=== PATIENT | male | born 1945 | race Caucasian/White ===

== ENCOUNTER 2019-02-05 06:01 | Day surgery (SDC) | payer OTHER, MEDICARE ==
--- NOTE | 2019-01-10 08:52 | HP ---
DATE OF ADMISSION: 02/05/2019 DATE OF DICTATION: 12/31/2018 DATE OF SURGERY: 02/05/2019 REASON FOR ADMISSION: Right inguinal hernia BRIEF HISTORY: This is a 73-year-old gentleman who was noted to have a large soft tissue mass in the right groin region. Patient was evaluated by a previous surgery and underwent an ultrasound that confirmed a small hernia that is 4 x 2 cm in size. The ultrasound was performed in [facility]. He also had an ultrasound that confirmed the sonographic finding, and that was also performed in [facility]. In any event, the patient states he has some discomfort in the area with certain maneuvers such as standing with his right foot forward, Valsalva, and bending. He has had no change in bowel habits or appetite. PAST MEDICAL HISTORY: He denies cardiac disease, hypertension, or diabetes. PAST SURGICAL HISTORY: Trigger finger surgery in 2012. ALLERGIES: None. MEDICATION: Avastatin, lisinopril, aspirin, various vitamins, and lecithin. SOCIAL HISTORY: Patient does not smoke. He drinks socially. PHYSICAL EXAMINATION: Patient examined in erect and supine positions. He has an obvious right inguinal hernia of large size. The hernia is reducible in the supine position. Right scrotum and testicles are within normal limits. On the left is no obvious hernia noted on examination. Left scrotum and testicles within normal limits as well. Some laxity noted in the left groin. IMPRESSION/PLAN: Right inguinal hernia: This is a 73-year-old gentleman symptomatic from a right inguinal hernia. Based on his history, the hernia has also gotten larger, and therefore I would recommend proceeding with a repair at this time. Patient will be scheduled for a laparoscopic right inguinal hernia repair. At the time of laparoscopy, the left side should be examined, and if occult hernia is noted, it should be repaired at the same setting. If no occult hernia is seen, a piece of mesh will be left in direct inguinal space for reinforcement. Given the size of the hernia on the right, he is more likely to develop a postoperative seroma which may or may not resolved. This was conveyed to the patient. He understands and wants to proceed. The indications, alternatives, and complications discussed. Questions answered. Will plan on obtaining written consent the day of surgery. WARREN FLORENCE M.D. MARY [id number]
[2019-01-30 11:21] VITALS: BMI 21.9
[2019-02-05] MEDS ORDERED: TAMSULOSIN HCL 0.4 MG CAP ONE (06:26)
[2019-02-05] MEDS ORDERED: MIDAZOLAM HCL 2 MG/2 ML SINGLE DOSE VIAL ONE (07:25)
[2019-02-05] MEDS ORDERED: BUPIVACAINE HCL/PF (5 MG/ML) 30 ML VIAL IJ ONE (07:25)
[2019-02-05] MEDS ORDERED: PROPOFOL 20 ML ONE ×2 (08:03)
[2019-02-05] MEDS ORDERED: fentaNYL CITRATE 250 MCG/5 ML VIAL ONE (08:03)
[2019-02-05] MEDS ORDERED: ROCURONIUM BROMIDE 50 MG/5 ML VIAL ONE (08:03)
[2019-02-05] MEDS ORDERED: SUCCINYLCHOLINE CHLORIDE 200 MG/10 ML VIAL ONE (08:03)
[2019-02-05] MEDS ORDERED: ONDANSETRON 4 MG/2 ML VIAL ONE (08:17)
[2019-02-05] MEDS ORDERED: DEXAMETHASONE SOD PHOSPHATE 4 MG/1 ML VIAL ONE (08:17)
[2019-02-05] MEDS ORDERED: LIDOCAINE HCL/PF 2% SDV 5ML VIAL ONE (08:17)
[2019-02-05] MEDS ORDERED: ceFAZolin SODIUM 1 GM VIAL ONE (08:17)
[2019-02-05] MEDS ORDERED: KETOROLAC TROMETHAMINE 30 MG/1 ML VIAL ONE (08:17)
[2019-02-05] MEDS ORDERED: ePHEDrine SULFATE 50 MG/1 ML AMPULE ONE (08:19)
[2019-02-05] MEDS ORDERED: NEOSTIGMINE METHYLSULFATE 0.5 MG/ML - 10 ML MDV ONE (08:45)
[2019-02-05] MEDS ORDERED: GLYCOPYRROLATE 0.2 MG/1 ML VIAL ONE (08:45)
[2019-02-05] MEDS ORDERED: PROMETHAZINE HCL 25 MG/1 ML VIAL IVPUSH PRN (09:26)
[2019-02-05] MEDS ORDERED: oxyCODONE HCL 5 MG TABLET PO PRN ×2 (09:26)
[2019-02-05] MEDS ORDERED: ONDANSETRON 4 MG/2 ML VIAL IVPUSH PRN (09:26)
[2019-02-05 10:32] VITALS: TEMP 98.4
[2019-02-05] MEDS ORDERED: ACETAMINOPHEN 325 MG TABLET (FP) PO SCH (12:00)
[2019-02-05 17:04] VITALS: BP 145/84; PULSE 94
--- NOTE | 2019-02-11 21:39 | OP ---
DATE OF OPERATION: 02/05/2019. PREOPERATIVE DIAGNOSIS: Right inguinal hernia. POSTOPERATIVE DIAGNOSES: Right inguinal hernia, left inguinal hernia, hypertension, cardiac disease, and diabetes. PROCEDURE: Bilateral laparoscopic inguinal herniorrhaphy with mesh. SURGEON: Reyes Florence MD ENGINEERING JOB TITLES: Homar Villalba DO ANESTHESIA: Anselmo Sanders MD (general) ESTIMATED BLOOD LOSS: Minimal. SPECIMEN: None. PROCEDURE: This is a 74-year-old gentleman symptomatic from a progressive right inguinal hernia. He is here for operative repair. The patient identified appropriately and placed on the operating room table. He was placed under general anesthesia. The abdomen prepped and draped in the usual sterile fashion with ChloraPrep. An infraumbilical incision was made deep in his subcutaneous tissue. The fascia of the rectus muscle on the right was divided sharply. The muscle split under direct vision and a dissector balloon, followed by a structural balloon placed. Also under direct vision, a suprapubic 11-mm port placed. The following structures were right-side identified: Pubic tubercle, Harman ligament, inferior epigastric vessels, spermatic cord, and lateral abdominal wall. During the dissection, the patient has an indirect inguinal hernia reduced back into the preperitoneal space with a moderate-sized cord lipoma. A 5 x 6 piece of Versatex mesh was keyholed and placed through the suprapubic port site. The mesh wrapped around the cord structures laterally to reconstruct the internal ring. Laterally, the mesh anchored to the anterior abdominal wall and lateral abdominal all. Medially, the mesh anchored to the anterior abdominal wall, pubic tubercle, and Harman ligament. Upon completion of the right side, similar structures on the left side identified. On the left, he had a small indirect inguinal hernia sac reduced back into the preperitoneal space. Another 5 x 6 piece of Versatex mesh was keyholed, placed through the suprapubic port site. The mesh wrapped around the cord structures laterally to reconstruct the internal ring. Laterally, the mesh anchored to the anterior abdominal wall and lateral abdominal wall. Medially, the mesh overlapped in the midline and anchored to the anterior abdominal wall, pubic tubercle, Harman ligament. All the anterior abdominal wall anchors and lateral abdominal anchors placed under direct counterpalpation. The mesh used was Versatex and the anchoring system was AbsorbaTack. The preperitoneal space deflated under direct vision. The operative field is hemostatic. Port sites hemostatic. Both port site's fascia was reapproximated with interrupted 0 Vicryl suture. All skin closed with 4-0 Biosyn, followed by Dermabond. At the conclusion of this case, sponge count was correct. ATTESTATION: Brief operative note handwritten on the preprinted form. [facility] queried prior to giving narcotics. REYES FLORENCE M.D. MARY [id number] MTDD
== END 2019-02-05 17:40 | disposition home or self-care (01) ==
LOC: FASU 06:01
PROVIDERS: ATTEND Surgery
PROC: 0YUA4JZ Supplement Bilateral Inguinal Region with Synthetic Substitute, Percutaneous Endoscopic Approach (ICD-10-PCS; principal; 2019-02-05 08:31)
DX: K40.20 Bilateral inguinal hernia, without obstruction or gangrene, not specified as recurrent (principal)
CPT/HCPCS: 94760